=== PATIENT | female | born 1940 | race African-American/Black ===

== ENCOUNTER 2022-04-10 03:23 | Emergency (ER) | payer MEDICARE, MEDICAID ==
[~2022-04-10] VITALS: Ht 160 cm; Wt 82.0 kg
[2022-04-10 05:58] LABS: CHLORIDE 109 mEq/L (98-107)
[2022-04-10 05:59] LABS: BASOPHILS % 0.4 % (0.0-2.0); EOSINOPHILS % 2.5 % (0.0-5.0); HEMATOCRIT. 37.6 % (36.0-48.0); HEMOGLOBIN. 12.3 g/dL (12.0-16.0); LYMPHOCYTES % 21.3 % (20.0-50.0); MEAN CORPUSCULAR HEMOGLOBIN 27.1 pg (28.0-32.0); MEAN CORPUSCULAR VOLUME 82.7 fL (81.0-99.0); MEAN PLATELET VOLUME 8.5 fl (7.4-10.4); MONOCYTES % 14.2 % (2.0-8.0); NEUTROPHILS % 61.6 % (40.0-76.0); PLATELET 189 x1000/uL (130-400); RED BLOOD CELL COUNT 4.54 mill/uL (4.2-5.4)
[2022-04-10] MEDS ORDERED: TRANEXAMIC ACID 1,000 MG/10 ML IV ONE (06:30)
[2022-04-10 06:34] LABS: PROTHROMBIN TIME 10.7 sec (9.6-11.0)
[2022-04-10] MEDS ORDERED: POTASSIUM CHLORIDE 20MEQ TABLET SR PO ONE (08:00)
[2022-04-10 08:59] VITALS: BP 168/108
== END 2022-04-10 09:00 | disposition home or self-care (01) ==
LOC: ER 03:23
DX: K06.8 Other specified disorders of gingiva and edentulous alveolar ridge (principal); Z98.818 Other dental procedure status; E87.6 Hypokalemia; I10 Essential (primary) hypertension; Z85.9 Personal history of malignant neoplasm, unspecified
CPT/HCPCS: 36415; 80053; 85025; 96374; 99283

== ENCOUNTER 2023-01-10 16:09 | Emergency (ER) | payer MEDICARE, MEDICAID ==
[~2023-01-10] VITALS: Ht 160 cm; Wt 67.0 kg
[2023-01-10 16:12] VITALS: BP 146/81; O2SAT 100
[2023-01-10 16:15] VITALS: PULSE 69; RESP 16
[2023-01-10 17:14] LABS: BASOPHILS % 0.8 % (0.0-2.0); EOSINOPHILS % 4.1 % (0.0-5.0); HEMATOCRIT. 36.2 % (36.0-48.0); HEMOGLOBIN. 11.9 g/dL (12.0-16.0); LYMPHOCYTES % 30.5 % (20.0-50.0); MEAN CORPUSCULAR HEMOGLOBIN 27.1 pg (28.0-32.0); MEAN CORPUSCULAR VOLUME 82.5 fL (81.0-99.0); MEAN PLATELET VOLUME 8.2 fl (7.4-10.4); MONOCYTES % 11.9 % (2.0-8.0); NEUTROPHILS % 52.7 % (40.0-76.0); PLATELET 249 x1000/uL (130-400); RED BLOOD CELL COUNT 4.39 mill/uL (4.2-5.4); RED CELL DISTRIBUTION WIDTH 13.8 % (11.6-14.6)
[2023-01-10 17:19] LABS: CHLORIDE 109 mEq/L (98-107)
[2023-01-10 17:30] VITALS: TEMP 98.9
[2023-01-10] MEDS ORDERED: ACETAMINOPHEN 325MG TABLET PO ONE (17:30)
[2023-01-10] MEDS ORDERED: LIDO700A15 TP (17:48)
[2023-01-10] MEDS ORDERED: ACET-2708 MT (17:48)
== END 2023-01-10 19:02 | disposition home or self-care (01) ==
LOC: ER 16:09
DX: N28.89 Other specified disorders of kidney and ureter (principal); C34.91 Malignant neoplasm of unspecified part of right bronchus or lung; M51.36 Other intervertebral disc degeneration, lumbar region; I10 Essential (primary) hypertension
CPT/HCPCS: 36415; 72128; 72131; 80053; 85025; 99284

== ENCOUNTER 2024-01-14 13:40 | Emergency (ER) | payer MEDICARE, MEDICAID ==
[~2024-01-14] VITALS: Ht 162.6 cm; Wt 98.0 kg
[~2024-01-14 13:40] MED LIST: ACET-2708 MT; LIDO700A15 TP
[2024-01-14 13:52] VITALS: O2SAT 100
[2024-01-14 14:40] LABS: BASOPHILS % 0.8 % (0.0-2.0); EOSINOPHILS % 2.4 % (0.0-5.0); HEMATOCRIT. 36.3 % (36.0-48.0); HEMOGLOBIN. 11.6 g/dL (12.0-16.0); LYMPHOCYTES % 24.4 % (20.0-50.0); MEAN CORPUSCULAR HEMOGLOBIN 27.2 pg (28.0-32.0); MEAN CORPUSCULAR HGB CONC 31.9 g/dL (31.0-37.0); MEAN CORPUSCULAR VOLUME 85.2 fL (81.0-99.0); MEAN PLATELET VOLUME 8.5 fl (7.4-10.4); MONOCYTES % 10.7 % (2.0-8.0); NEUTROPHILS % 61.7 % (40.0-76.0); PLATELET 211 x1000/uL (130-400); RED BLOOD CELL COUNT 4.26 mill/uL (4.2-5.4); RED CELL DISTRIBUTION WIDTH 13.9 % (11.6-14.6); WHITE BLOOD COUNT 4.8 x1000/uL (4.5-11.0)
[2024-01-14 14:44] LABS: CHLORIDE 106 mEq/L (98-107); POTASSIUM 4.2 mEq/L (3.5-5.1); SODIUM 141 mEq/L (136-145)
[2024-01-14 14:45] LABS: CALCIUM 9.5 mg/dL (8.7-10.4); CARBON DIOXIDE 29 mEq/L (21-32)
[2024-01-14 14:47] LABS: INR 0.9; PROTHROMBIN TIME 10.5 sec (9.6-11.0)
[2024-01-14 14:50] LABS: CREATININE 0.7 mg/dL (0.6-1.0); GLUCOSE 109 mg/dL (70-105); UREA NITROGEN BLOOD 18 mg/dL (9-23)
[2024-01-14 14:51] LABS: TROPONIN I HIGH SENSITIVITY 7 ng/L (3.0-34)
[2024-01-14 14:52] LABS: ALANINE AMINOTRANSFERASE 10 IU/L (10-49); ALBUMIN 4.3 g/dL (3.2-4.8); ASPARTATE AMINOTRANSFERASE 19 IU/L (<34); BILIRUBIN DIRECT 0.1 mg/dL (<=3.0)
[2024-01-14 14:53] LABS: BILIRUBIN TOTAL 0.6 mg/dL (0.1-1.0); PROTEIN TOTAL 6.8 g/dL (6.0-8.3)
[2024-01-14] MEDS: SODIUM CHLORIDE 0.9% 1,000 ML IV ONE (15:04)
[2024-01-14 16:14] LABS: CLARITY URINE CLEAR (CLEAR); COLOR URINE YELLOW (YELLOW); GLUCOSE URINE NEGATIVE (NEGATIVE); KETONES URINE NEGATIVE (NEGATIVE); LEUKOCYTE ESTERASE URINE TRACE (NEGATIVE); NITRITE URINE NEGATIVE (NEGATIVE); OCCULT BLOOD URINE NEGATIVE (NEGATIVE); PH URINE 8.5 (4.5-8.0); PROTEIN URINE NEGATIVE (NEGATIVE); SPECIFIC GRAVITY URINE 1.006 (1.005-1.030); UROBILINOGEN URINE 0.2 E.U./dL (0.2-1.0)
[2024-01-14 16:49] LABS: BACTERIA URINE TRACE; RBC URINE NONE SEEN /hpf (0-2); SQUAMOUS EPITHELIAL CELL URINE RARE /lpf (RARE/1+); WBC URINE 0-2 /hpf (0-2)
[2024-01-14 17:15] VITALS: BP 141/74; PULSE 59; RESP 15; TEMP 98
== END 2024-01-14 17:33 | disposition home or self-care (01) ==
LOC: ER 14:47
DX: R53.1 Weakness (principal); I10 Essential (primary) hypertension; Z93.3 Colostomy status
CPT/HCPCS: 99285; 96360; 71045; 80076; 80048; 81003; 83880; 83605; 83690; 85025; 85610; 84484; 36415; 93005; J7030